=== PATIENT | female | born 1975 | race Caucasian/White ===

== ENCOUNTER → 2016-08-22 | Outpatient (CLI) | payer OTHER ==
--- NOTE | 2016-08-22 19:31 | DX ---
Bilateral Hands, 2 Views, at 11:28 a.m. Clinical History: 41-year-old female with joint pain. Rule out rheumatoid arthritis. ICD10 Diagnostic Code: M25.50. Comparison Study: None. Findings: Bone mineralization in each hand is normal, with no juxta-articular osteopenia, marginal er osion, soft tissue swelling or calcification, or joint subluxation. There is no fracture, dislocation , or periostitis. The radiocarpal and intercarpal alignments are maintained. Impression: Normal conventional radiographs.
== END ==
LOC: FIMAGING 11:19
PROVIDERS: ATTEND Internal Medicine Rheumatology
DX: M25.541 Pain in joints of right hand (principal); M25.542 Pain in joints of left hand

== ENCOUNTER → 2016-12-17 | Outpatient (CLI) | payer OTHER | LOC: FIMAGING 12:55 | DX: Z12.31 Encounter for screening mammogram for malignant neoplasm of breast (principal) | CPT/HCPCS: G0202 ==

== ENCOUNTER → 2017-07-15 | Outpatient (CLI) | payer OTHER | LOC: EDSTATUS 14:02 → FIMAGING 14:02 | PROVIDERS: ATTEND Neurological Surgery | DX: M54.16 Radiculopathy, lumbar region (principal); M43.17 Spondylolisthesis, lumbosacral region; M51.36 Other intervertebral disc degeneration, lumbar region; M51.37 Other intervertebral disc degeneration, lumbosacral region ==

== ENCOUNTER 2017-08-31 08:35 | Inpatient (IN) | payer OTHER ==
[2017-08-24 13:20] LABS: PLATELET COUNT 221 10^3/uL (150-400)
[2017-08-31] MEDS ORDERED: GABAPENTIN 300 MG CAP PO ONE ×2 (08:59→10:15)
[2017-08-31] MEDS ORDERED: ceFAZolin 2 GM/SWFI 2 GM/20 ML SYR IVP ONE (08:59)
[2017-08-31] MEDS ORDERED: ACETAMINOPHEN 500 MG TAB PO ONE (08:59)
[2017-08-31] MEDS ORDERED: BUPIVACAINE 0.25% 30 ML SDV ONE (09:03)
[2017-08-31] MEDS ORDERED: CHLORHEXIDINE GLUC HIBICLENS 118 ML BTL TP ONE (09:04)
[2017-08-31] MEDS ORDERED: THROMBIN (BOVINE) 20,000 UNIT VIAL TP ONE (09:04)
[2017-08-31] MEDS ORDERED: BACITRACIN 50,000 UNITS/10 ML SYR IRR ONE (09:04)
[2017-08-31] MEDS ORDERED: LR 1,000 ML IV ONE (09:09)
[2017-08-31] MEDS ORDERED: LIDOCAINE 1% 2 ML INJ ID PRN (09:09)
--- NOTE | 2017-08-31 10:04 | PDHPUP ---
History & Physical Update H&P update statement: This history and physical update is based on an assessment of the patient which was completed after admission or registration (within 24 hours), but prior to the surgery/procedure. H&P update: H&P reviewed & patient examined, no change in patient's condition since H&P completed
[2017-08-31] MEDS ORDERED: MIDAZOLAM 2 MG/2 ML VIAL ONE (10:23)
[2017-08-31] MEDS ORDERED: PROPOFOL/EMULSION 500 MG/50 ML BOTTLE IV ONE (10:23)
[2017-08-31] MEDS ORDERED: fentaNYL 100 MCG/2 ML INJ ONE ×3 (10:23→15:02)
--- NOTE | 2017-08-31 11:04 | PDANEPAE ---
ANE Past Medical History - Cardiovascular History Hx Hypertension: No Hx Arrhythmias: Yes Hx Chest Pain: No Hx Coronary Artery / Peripheral Vascular Disease: No Hx CHF / Valvular Disease: No Hx Palpitations: No Cardiovascular History Comment: ablation x2 - Pulmonary History Hx COPD: No Hx Asthma/Reactive Airway Disease: No Hx Recent Upper Respiratory Infection: No Hx Oxygen in Use at Home: No Hx Sleep Apnea: No Sleep Apnea Screening Result - Last Documented: Negative - Neurologic History Hx Cerebrovascular Accident: No Hx Seizures: No Hx Dementia: No - Endocrine History Hx Diabetes: No - Renal History Hx Renal Disorders: No - Liver History Hx Hepatic Disorders: Yes Hepatic History Comment: red blood cells lower R/T RA medication - Neurological & Psychiatric Hx Hx Neurological and Psychiatric Disorders: Yes Neurological / Psychiatric History Comment: raynards,ethromyalgia - Cancer History Hx Cancer: No - Congenital Disorder History Hx Congenital Disorders: Yes Congenital History Comment: RA - GI History Hx Gastrointestinal Disorders: Yes Gastrointestinal History Comment: gerd - Other Health History Other Health History: none - Chronic Pain History Chronic Pain: Yes (left shoulder and neck) - Surgical History Prior Surgeries: none ANE Review of Systems Review of Systems: - Exercise capacity METS (RN): 4 METS ANE Patient History - Allergies Allergies/Adverse Reactions: No Known Allergies Allergy (Verified 08/21/17 15:43) - Home Medications Home Medications: Cholecalciferol Vit D3 [Vitamin D3 2000 units tab (OTC)] 2,000 units PO DAILY [Last Taken 08/24/17] Fexofenadine HCl 180 mg PO DAILY 08/18/17 [Last Taken 08/29/17] Gabapentin [Neurontin 300 MG (*)] 300 mg PO BID 08/18/17 [Last Taken 08/31/17 0500] Ibuprofen [Motrin (*)] 400 mg PO BID 08/18/17 [Last Taken 08/24/17] Leflunomide [Arava 20 mg (*)] 10 mg PO Q2D 08/18/17 [Last Taken 08/29/17 19:00] traMADol [Ultram 50 mg (*)] 50 mg PO BID 08/18/17 [Last Taken 08/24/17 05:00] Acetaminophen [Tylenol 325mg (*)] 650 mg PO Q6 PRN 08/31/17 [Last Taken 08/30/17 ] Omeprazole Magnesium [Prilosec Otc] 20 mg PO Q3D 08/31/17 [Last Taken 08/31/17] Pseudoephedrine HCl [Sudafed 12 Hour 120mg (*)] 120 mg PO BID 08/31/17 [Last Taken 08/30/17] - NPO status NPO Since - Liquids (Date): 08/30/17 NPO Since - Liquids (Time): 21:00 NPO Since - Solids (Date): 08/30/17 NPO Since - Solids (Time): 21:00 - Smoking Hx Smoking Status: Former smoker - Family Anes Hx Family Hx Anesthesia Complications: none ANE Labs/Vital Signs - Labs Result Diagrams: 08/24/17 13:06 - Vital Signs Blood Pressure: 132/91 Heart Rate: 87 Respiratory Rate: 16 O2 Sat (%): 96 Height: 162.56 cm Weight: 49.895 kg ANE Physical Exam - Airway Neck exam: FROM Mallampati Score: Class 1 Mouth exam: normal dental/mouth exam - Pulmonary Pulmonary: no respiratory distress, no rales or rhonchi, clear to auscultation - Cardiovascular Cardiovascular: regular rate and rhythym, no murmur, rub, or gallop, pulses symmetric bilaterally - ASA Status ASA Status: III ANE Anesthesia Plan Anesthesia Plan: general endotracheal anesthesia Lines/Monitors: additional IV
[2017-08-31] MEDS ORDERED: LIDOCAINE 2% 5 ML SDV ONE ×2 (11:05→13:35)
[2017-08-31] MEDS ORDERED: ROCURONIUM 50 MG/5 ML VIAL ONE (11:05)
[2017-08-31] MEDS ORDERED: DEXAMETHASONE 4 MG/ML VIAL ONE (11:05)
[2017-08-31] MEDS ORDERED: RANITIDINE 50 MG/2 ML VIAL ONE (11:05)
[2017-08-31] MEDS ORDERED: ONDANSETRON 4 MG/2 ML VIAL ONE (11:05)
[2017-08-31] MEDS ORDERED: METOCLOPRAMIDE 10 MG/2 ML VIAL ONE (11:05)
[2017-08-31] MEDS ORDERED: SUGAMMADEX SODIUM 200 MG/2 ML VIAL IVP ONE (11:05)
[2017-08-31] MEDS ORDERED: diphenhydrAMINE 25 MG CAP PO PRN (11:12)
[2017-08-31] MEDS ORDERED: LACTULOSE 20 GM/30 ML UDCUP PO PRN (11:12)
[2017-08-31] MEDS ORDERED: POLYETHYLENE GLYCOL 3350 17 GM PKT PO PRN (11:12)
[2017-08-31] MEDS ORDERED: NALOXONE HCL 0.4 MG/ML INJ IVP PRN ×3 (11:12→15:27)
[2017-08-31] MEDS ORDERED: ACETAMINOPHEN 325 MG TAB PO PRN (11:12)
[2017-08-31] MEDS ORDERED: morphINE PCA 30 MG/30 ML PCA IV PRN (11:12)
[2017-08-31] MEDS ORDERED: MAGNESIUM HYDROXIDE 30 ML UDCUP PO PRN (11:12)
[2017-08-31] MEDS ORDERED: ONDANSETRON 4 MG/2 ML VIAL IVP PRN ×2 (11:12→14:14)
[2017-08-31] MEDS ORDERED: BISACODYL 10 MG SUPP PR PRN (11:12)
[2017-08-31] MEDS ORDERED: ALBUMIN 5% 250 ML BOTTLE IV ONE ×2 (11:44→13:24)
[2017-08-31] MEDS ORDERED: PHENYLEPHRINE HCL 100 MCG/ML SYR ONE (12:43)
[2017-08-31] MEDS ORDERED: PROPOFOL 200 MG/20 ML VIAL ONE (13:33)
[2017-08-31] MEDS ORDERED: ceFAZolin 2 GM/DEXTROSE 100 ML IV SCH (14:00)
[2017-08-31] MEDS ORDERED: METOCLOPRAMIDE 10 MG/2 ML VIAL IVP PRN (14:14)
[2017-08-31] MEDS ORDERED: PROMETHAZINE HCL 25 MG/ML INJ IVP PRN (14:14)
[2017-08-31] MEDS ORDERED: DEXAMETHASONE 4 MG/ML VIAL IVP PRN (14:14)
[2017-08-31] MEDS ORDERED: PHENYLEPHRINE HCL 100 MCG/ML SYR IVP PRN (14:14)
[2017-08-31] MEDS ORDERED: ALBUTEROL 3 ML DEYVIAL IH PRN (14:14)
[2017-08-31] MEDS ORDERED: MEPERIDINE 25 MG/ML SYR IVP PRN (14:14)
[2017-08-31] MEDS ORDERED: CALCIUM CHLORIDE 1 GM/10 ML INJ ONE (14:19)
--- NOTE | 2017-08-31 14:58 | POSTOPPROG ---
Post Op Note Date of Operation: 08/31/17 Surgeon: Wyatt Peterson Calibration Technician: Daiana Looney NP Anesthesia: GET(General Endotracheal) Pre-op Diagnosis: Spondylilothesis, lumbar stenosis Procedure: L5-S1 TLIF Inf/Abcess present in the surg proc area at time of surgery?: No Depth: Deep Incisional (Fascial) EBL: 100-500 Total fluids administered: see anesthesia Complications: none Drains: Luiz Vasquez Date of Surgery: 08/31/17 Post Op Day: 0 Assessment/Plan: 42 yr old s/p L5-S1 TLIF for back pain and right > left leg pain Plan: -Pain management, FACILITY MECHANIC ordered if needed -PT/OT eval and treat -Wear brace when out of bed, patient has been fitted for brace already -Post op xrays in am -Please call Neurosurgery with any questions/concerns Subjective: Patient waking up in PACU Objective: Waking up in PACU Following commands PERRLA 5/5 BUE, BLE Sensation intact to light touch BLE ANGELA patent Dressing CDI Appropriate Neuro Check Frequency Ordered: Yes
[2017-08-31] MEDS: fentaNYL 100 MCG/2 ML INJ IVP PRN ×2 (15:04→15:21)
--- NOTE | 2017-08-31 15:16 | POSTANESTH ---
Post Anesthetic Evaluation Cardiovascular Status: Normal, Stable, Similar to Pre-Op Cond Respiratory Status: Normal, Stable, Similar to Pre-op Cond. Level of Consciousness/Mental Status: Can Participate in Eval Pain Control: Adequate, Prn Tx Ordered Nausea/Vomiting Control: Adequate, Prn Tx Ordered Complications Possibly Related to Anesthesia: None Noted
[2017-08-31] MEDS: DIAZEPAM 10 MG/2 ML SYR IVP PRN ×2 (15:38→15:48)
[2017-08-31] MEDS: oxyCODONE IR 5 MG TAB PO PRN ×2 (17:19→20:58)
[2017-08-31] MEDS: METHOCARBAMOL 750 MG TAB PO PRN ×2 (17:19→22:35)
[2017-08-31] MEDS: ACETAMINOPHEN 500 MG TAB PO SCH ×2 (18:28→21:32)
[2017-08-31] MEDS: ceFAZolin 2 GM/SWFI 2 GM/20 ML SYR IVP SCH (19:02)
--- NOTE | 2017-08-31 20:44 | GOP ---
[f rep st] OPERATIVE REPORT DATE OF OPERATION: 08/31/2017 SURGEON: Malachi Peterson MD NEUROSURGEON: Malachi Peterson MD. PHYSICIAN PR[facility] MEDICINE: Daiana Looney, nurse practitioner. PREOPERATIVE DIAGNOSIS: Lumbar spondylolisthesis grade 2 L5-S1; bilateral pars defects L5; right lum bosacral radiculopathy. POSTOPERATIVE DIAGNOSIS: Lumbar spondylolisthesis grade 2 L5-S1; bilateral pars defects L5; right melania mbosacral radiculopathy. PROCEDURE PERFORMED: Posterolateral and intervertebral arthrodesis at L5-S1 with a bilateral Guzman de compression at L5-S1 (95687), posterior nonsegmental instrumentation across a single interspace L5-S1 (59021), placement of expandable biomechanical intervertebral device L5-S1 ([id number]), same-incision davian ne graft harvest, microscope, spinal stereotaxy. FINDINGS: ESTIMATED BLOOD LOSS: 200 cc. INDICATIONS: Patient is a 42-year-old who is very active and athletic, had a grade 2 spondylolisthes is with bilateral spondylolysis of L5 on S1 with a right L5 radiculopathy. This interfered with her activities of daily living and she failed conservative management. She wanted to have surgery. The risk of adjacent segment disease, as well as ongoing radicular pain and/or back pain was discussed. She knew surgery was not a guarantee, but it had a high probability of success. She knew there was r isk of nerve injury, spinal fluid leak, and possible need for future surgery. She did want to procee d. DESCRIPTION OF PROCEDURE: Patient was taken to the operating room, placed in supine position. Gener al anesthesia was begun. She was flipped prone onto the Luiz table. Care was taken to pad all po ints of contact. Her back was sterilely prepped and draped by the surgeon. A localizing x-ray was t aken. I made about a 5.5 cm incision above the L5-S1 interspace through subcutaneous tissue. It was dissected using Bovie cautery down through the fascia and a subperiosteal dissection was made down t he L5-S1 lamina and L4 lamina. Self-retaining retractor was placed. A localizing x-ray was taken. We denuded the bilateral hypertrophic facet joints at L5-S1. Despite the fact that she did indeed almonte ve a pars defect, the facet joints did appear enlarged. We decorticated the sacral ala and the trans verse process of L5 and we appreciated a cyst coming out of the right L5 pars defect as we are doing this. This was all completely removed. There were also some paraspinal cysts at the inferior L4-5 f acet joint, but I actually felt that these were likely related to the pars defect itself. We hydraulic press operator d the Stealth reference frame to the L4 spinous process, performed an O-arm spin, and using frameless Stealth stereotaxy we placed pedicle screws bilaterally at L5 and the sacrum. They were in excellen t position. An O-arm spin was made to confirm their location. None of them had to be moved. In fac t, it was interesting that she actually had a borderline grade 3 spondylolisthesis on the table. She was at grade 2-3 junction with about a 49% subluxation of L5 on S1. We put all the screws in. They stimulated at acceptable levels. We placed a 35 mm hawk down on the left and a 40 mm hawk on the righ t. We distracted between L5 and S1 and we reduced her to a grade 1 spondylolisthesis. So we reduced her a single grade and also got significant elevation of the disk space. She was [id number] prior to this, and after distracting we were able to get about 7-8 mm of spread between L5 and the sacrum. We final tightened the cap screws according to company specification and locked her in this positio n. We then carefully removed all the soft tissue of the bone from L5. We completely removed the dana ating lamina of L5 and used it for autologous grafting purposes. The dura was notably extremely thin at L5-S1 as is typical in these cases. We decompressed and removed the abnormal pars interarticular is bilaterally. This left the superior articular process of the sacrum. We also decorticated the is thmus coming off L5 on each side to allow posterolateral bone to form in this location. We began on the left and we performed an excellent decompression to the left L5 root. Then we went to the right and also decompressed the right L5 nerve root and indeed this one may have been somewhat tighter than what we saw on the left, although again there was nice distraction of the foramen. The nerve now wa s free and clear of compression. We then incised the L5-S1 disk from the right-hand side. We remove d the disk and the cartilaginous endplates. This was a relatively straightforward procedure. We alon lavell bone autograft and BMP into the disk space and chose a 7 mm expandable cage. It was inserted at L5-S1. We inserted the cage, expanded it under fluoroscopic guidance, and there was excellent positi oning of the cage and we were able to get some slight lordosis at the L5-S1 segment with this expansi on. We inspected the cage. It was firmly seated in the disk space itself without encroachment on ei ther the traversing S1 root or the exiting L5 root. It was in great position. We irrigated with ant ibiotic saline, decorticated all the remaining posterolateral bone at L5-S1, placed bone autograft an d BMP down posterolaterally bilaterally. We then placed a subfascial drain, and then closed the inci celeste in multiple layers using Vicryl sutures. Steri-Strips were applied to the skin. The patient wa s reversed from anesthesia, extubated, and transferred to recovery room in stable condition. There w ere no complications. COMPLICATIONS: None. /[id number]/MODL
[2017-08-31] MEDS: SENNOSIDES/DOCUSATE SODIUM TAB PO SCH (21:32)
[2017-08-31] MEDS: GABAPENTIN 300 MG CAP PO SCH (21:32)
[2017-08-31] MEDS: FAMOTIDINE 20 MG TAB PO SCH (21:32)
[2017-08-31] MEDS: DIAZEPAM 5 MG TAB PO PRN (22:35)
[2017-09-01] MEDS: oxyCODONE IR 5 MG TAB PO PRN ×8 (00:05→22:56)
[2017-09-01] MEDS: ceFAZolin 2 GM/SWFI 2 GM/20 ML SYR IVP SCH (03:20)
[2017-09-01 04:45] LABS: PLATELET COUNT 215 10^3/uL (150-400)
[2017-09-01] MEDS: ACETAMINOPHEN 500 MG TAB PO SCH ×3 (04:49→21:37)
[2017-09-01] MEDS: ONDANSETRON DISINTEGRATING 4 MG TAB PO PRN (04:50)
[2017-09-01] MEDS: METHOCARBAMOL 750 MG TAB PO PRN ×3 (06:46→18:56)
[2017-09-01] MEDS: SENNOSIDES/DOCUSATE SODIUM TAB PO SCH ×2 (07:45→21:37)
[2017-09-01] MEDS: DIAZEPAM 5 MG TAB PO PRN ×3 (07:45→21:37)
[2017-09-01] MEDS: GABAPENTIN 300 MG CAP PO SCH ×4 (07:46→21:37)
[2017-09-01] MEDS: FAMOTIDINE 20 MG TAB PO SCH ×2 (07:46→21:37)
--- NOTE | 2017-09-01 08:02 | NEUSURGPN ---
Date of Surgery: 08/31/17 Post Op Day: 1 Assessment/Plan: 42 yr old s/p L5-S1 TLIF for back pain and right > left leg pain POD#1 Plan: -Pain management, patient having bilateral posterior leg pain R>L and expected incisional pain, will increase Gabapentin to TID -PT/OT eval and treat -DC ANGELA -Wear brace when out of bed, patient has been fitted for brace already -Post op xrays today -Please call Neurosurgery with any questions/concerns Subjective: Patient having expected incisional pain and bilateral posterior leg pain Objective: AxO x3 5/5 BUE, BLE Sensation intact to light touch BLE Dressing CDI ANGELA present Neuro Check Frequency: per routine Urinary Catheter in Place: No - Physician Discussed Patient with .: Nicholas Patient Seen by : Nicholas Neurosurgery Physical Exam - Vitals, I&O, Labs I and O 08/31/17 09/01/17 09/02/17 05:59 05:59 05:59 Intake Total 2030 Output Total 1800 Balance 230 Weight 49.895 kg Intake: Oral (ml) 1030 IV Intake (ml) 1000 Output: Urine (ml) 1500 Bedside Commode 1500 Estimated Blood Loss (ml) 300 ANGELA Drain Output (ml) 0 Back 0 Other: Intake Quantity Yes Sufficient Number of Voids Bedside Commode 2 Vital Signs Temp Pulse Resp BP Pulse Ox 36.9 C 80 19 118/72 100 09/01/17 03:39 09/01/17 03:39 09/01/17 03:39 09/01/17 03:39 09/01/17 03:39 Laboratory Results 09/01/17 04:22 09/01/17 04:22 ICD10 Worksheet Patient Problems: Problems Problem Status Onset Lumbar stenosis Acute - ICD10 Problem Qualifiers (1) Lumbar stenosis
--- NOTE | 2017-09-01 16:50 | ASMTCMCOM ---
CM Note CM Note Notes: Pt is s/p L5-S1 TLIF, has brace. PT/OT have cleared. Anticipate d/c home with and no CM needs. Will continue to follow for any change in needs. Date Signed: 09/01/2017 04:50 PM Electronically Signed By:SHANEL Chaidez
[2017-09-02] MEDS: oxyCODONE IR 5 MG TAB PO PRN ×5 (04:16→20:30)
[2017-09-02] MEDS: METHOCARBAMOL 750 MG TAB PO PRN ×4 (04:16→20:30)
[2017-09-02] MEDS: ACETAMINOPHEN 500 MG TAB PO SCH ×3 (06:15→20:31)
[2017-09-02] MEDS: DIAZEPAM 5 MG TAB PO PRN ×3 (06:15→20:30)
--- NOTE | 2017-09-02 07:51 | NEUSURGPN ---
Date of Surgery: 08/31/17 Post Op Day: 2 Assessment/Plan: 42 yr old s/p L5-S1 TLIF for back pain and right > left leg pain POD#2 Plan: -Pain has improved with oral medications per patient, expected incisional pain -PT/OT -Wear brace when out of bed, patient has been fitted for brace already -Post op xrays show stable hardware placement -Patient will likely dc home later today pending pain control with therapy this am -Discussed patient with Dr Peterson and he will see her this am -Please call Neurosurgery with any questions/concerns Subjective: Pain has improved, got 5 hours of sleep last pm Objective: PERRLA EOMI 5/5 BLE Sensation intact to light touch BLE Dressing CDI Neuro Check Frequency: per routine Urinary Catheter in Place: No - Physician Discussed Patient with DrZay: Nicholas Patient Seen by : Nicholas Neurosurgery Physical Exam - Vitals, I&O, Labs I and O 09/01/17 09/02/17 09/03/17 05:59 05:59 05:59 Intake Total 2030 350 Output Total 1800 Balance 230 350 Weight 49.895 kg Intake: Oral (ml) 1030 350 IV Intake (ml) 1000 Output: Urine (ml) 1500 Bedside Commode 1500 Estimated Blood Loss (ml) 300 ANGELA Drain Output (ml) 0 Back 0 Other: Intake Quantity Yes Yes Sufficient Number of Voids Bedside Commode 2 Toilet 1 Number of Stools Toilet 1 Vital Signs Temp Pulse Resp BP Pulse Ox 36.9 C 106 H 16 116/66 97 09/02/17 04:00 09/02/17 04:00 09/02/17 04:00 09/02/17 04:00 09/02/17 04:00 Laboratory Results 09/01/17 04:22 09/01/17 04:22 ICD10 Worksheet Patient Problems: Problems Problem Status Onset Lumbar stenosis Acute - ICD10 Problem Qualifiers (1) Lumbar stenosis
[2017-09-02] MEDS: ONDANSETRON DISINTEGRATING 4 MG TAB PO PRN (09:00)
[2017-09-02] MEDS: FAMOTIDINE 20 MG TAB PO SCH ×2 (09:03→20:31)
[2017-09-02] MEDS: GABAPENTIN 300 MG CAP PO SCH ×3 (09:04→20:31)
[2017-09-02] MEDS: SENNOSIDES/DOCUSATE SODIUM TAB PO SCH ×2 (09:18→22:38)
--- NOTE | 2017-09-02 16:30 | CPEKG ---
Heart Rate: 129 RR Interval: 465 P-R Interval: 132 QRSD Interval: 72 QT Interval: 276 QTC Interval: 405 P [place]: 58 QRS [place]: 70 T Wave [place]: 23 EKG Severity - OTHERWISE NORMAL ECG - EKG Impression: SINUS TACHYCARDIA EKG Impression: COMPARED WITH 07/29/2011 AT 7:24 A.M., HEART RATE IS NOW FASTER Electronically Signed By: Haleigh Sorto 03-Sep-2017 13:32:46
--- NOTE | 2017-09-02 17:19 | GCON ---
[f rep st] CONSULTATION CARDIOLOGY CONSULTATION DATE OF CONSULTATION: 09/02/2017 REFERRING PHYSICIAN: Malachi Peterson MD REASON FOR CONSULTATION: Tachycardia. HISTORY OF PRESENT ILLNESS: The patient is a 42-year-old woman who underwent lumbar spine surgery 2 days ago. Since her surgery, she has had moderately increased heart rates with heart rates typically 100-115 beats per minute. However, today her heart rate has been higher. At times, it has been up to 140 beats per minute. The patient was not on telemetry. Shortly before my arrival, she was conne cted to telemetry and also had a 12-lead ECG demonstrating sinus tachycardia at approximately 130 cesar ts per minute. During my conversation with her, I saw heart rates as high as 144 beats per minute. She does sense that her heart is going fast. However, she denies any chest discomfort, lightheadedne ss, or dyspnea. PAST CARDIAC HISTORY AND TESTING: She has a prior history of frequent PVCs, reportedly over 10,000 p er day. Late in 2010, she underwent 2 separate PVC ablation procedures by Dr. Kearney. These took place in May and July of that year. She was seen for followup by Dr. Kearney in August of 2011 but h as not been seen in our office since then. PAST MEDICAL HISTORY: Her past medical history includes rheumatoid arthritis and sinusitis. She has a history of prior sinus surgery. FAMILY HISTORY: Noncontributory. MEDICATIONS: Home medicines include omeprazole, Tylenol, gabapentin, fexofenadine, vitamin D, leflun omide, oxycodone, Robaxin, and diazepam. Because of sinus headache, she had been taking Advil. She was advised to discontinue this. She replaced it with 12-hour Sudafed at 120 mg twice daily, but she stopped this as directed several days before her surgery. ALLERGIES: No known drug allergies. SOCIAL HISTORY: She is . She has a 12-year-old daughter. She smoked in the remote past. Al cohol consumption is minimal. She manages a local dental office. Her back problems have kept her fr om being vigorously active, but she tries to walk on her treadmill regularly. REVIEW OF SYSTEMS: Apart from her back pain issues and sensation of tachycardia, a 10-point review w as negative. PHYSICAL EXAMINATION: VITAL SIGNS: Heart rate 130-140 beats per minute. Blood pressure 127/80, chetna m air O2 saturation 98%. GENERAL: This is a petite 42-year-old woman who appears somewhat anxious. She is alert and oriented x3. HEAD AND NECK: No scleral icterus. Mucous membranes moist. Carotid pulses 2+, without bruits. There is no JVD. CHEST: Lung bryan clear to auscultation bilaterally. CARDIAC: Tachycardic, regular rate. No murmur or gallop. ABDOMEN: Soft, nontender, nondistended , with normal bowel sounds. EXTREMITIES: 2+ pulses and no peripheral edema. LABORATORY STUDIES: Laboratory testing performed yesterday included a CBC with a white blood cell co unt of 10.39 and hemoglobin and hematocrit of 10.6 and 30.7. Platelet count was 215,000. Her metabo lic panel from yesterday demonstrated a sodium of 142, with potassium 4.4, BUN 9, and creatinine 0.6. ECG: Her 12-lead ECG from this afternoon demonstrates sinus tachycardia at 129 beats per minute. Th ere are no Q-waves or conduction system disturbances. There are no ischemic changes. IMPRESSION: This is a 42-year-old woman with a history of premature ventricular contractions and gypsy or ablation for said premature ventricular contractions. She is 2 days status post lumbar spine surg amanda. She now demonstrates sinus tachycardia with significantly elevated heart rate. She is not hypo tensive. She is not running a fever. There have been no bleeding issues or signs of infection. She has been on DVT prophylaxis with both compression stockings and subcutaneous low molecular weight he mateus. Still, pulmonary embolism could remain in the differential diagnosis. PLAN: The patient will be transferred to PCU. We will check a lower extremity Doppler to rule out D VT. She will have a TSH, hemoglobin/hematocrit drawn. We will start her on low-dose metoprolol. /[id number]/MODL
[2017-09-02] MEDS: METOPROLOL TARTRATE 25 MG TAB PO SCH (17:50)
[2017-09-03] MEDS: DIAZEPAM 5 MG TAB PO PRN (03:36)
[2017-09-03] MEDS: oxyCODONE IR 5 MG TAB PO PRN ×3 (03:36→12:40)
[2017-09-03] MEDS: ACETAMINOPHEN 500 MG TAB PO SCH ×2 (07:06→15:53)
[2017-09-03] MEDS ORDERED: NON-FORMULARY NEW DRUG (Omeprazole Magnesium [Prilosec Otc] 20 MG) PO SCH (08:00)
[2017-09-03] MEDS ORDERED: PANTOPRAZOLE SODIUM 40 MG TAB PO SCH (08:00)
--- NOTE | 2017-09-03 08:26 | NEUSURGPN ---
Date of Surgery: 08/31/17 Post Op Day: 3 Assessment/Plan: 42 yr old s/p L5-S1 TLIF for back pain and right > left leg pain POD#3 Plan: -Pain has improved with oral medications per patient, expected incisional pain -PT/OT -Wear brace when out of bed, patient has been fitted for brace already -Post op xrays show stable hardware placement -Patient with tachycardia/PVC's yesterday afternoon, cardiology was consulted. Patient has history of cardiac ablation for tachycardia -Patient may dc home from a neurosurgery standpoint. Will await cardiology recommendations for tachycardia -BLE doppler pending to rule out DVT -May removed dressing, leave steri strips in place. Ok to shower today -Start Lovenox for DVT prophylaxis today -Discussed patient with Dr Peterson and he will see her this am -Please call Neurosurgery with any questions/concerns Subjective: Patient feeling good, better today. Denies chest pain or shortness of breath Objective: AxO x3 PERRLA EOMI 5/5 BLE Sensation intact to light touch BLE Dressing CDI Neuro Check Frequency: per routine Urinary Catheter in Place: No - Physician Discussed Patient with : Nicholas Patient Seen by : Nicholas Neurosurgery Physical Exam - Vitals, I&O, Labs I and O 09/02/17 09/03/17 09/04/17 05:59 05:59 05:59 Intake Total 350 500 Output Total 125 Balance 350 375 Intake: Oral (ml) 350 500 Output: Urine (ml) 125 Toilet 125 Other: Intake Quantity Yes Sufficient Number of Voids Toilet 1 1 Number of Stools Toilet 1 Vital Signs Temp Pulse Resp BP Pulse Ox 36.8 C 102 H 20 100/69 93 09/03/17 03:22 09/03/17 03:22 09/03/17 03:22 09/03/17 03:22 09/03/17 03:22 Laboratory Results 09/02/17 18:00 09/01/17 04:22 ICD10 Worksheet Patient Problems: Problems Problem Status Onset Lumbar stenosis Acute - ICD10 Problem Qualifiers (1) Lumbar stenosis
[2017-09-03] MEDS: GABAPENTIN 300 MG CAP PO SCH ×2 (08:28→15:53)
[2017-09-03] MEDS: METOPROLOL TARTRATE 25 MG TAB PO SCH (08:28)
[2017-09-03] MEDS: FAMOTIDINE 20 MG TAB PO SCH (08:28)
[2017-09-03 08:39] VITALS: RESP 18
[2017-09-03] MEDS: METHOCARBAMOL 750 MG TAB PO PRN (08:39)
[2017-09-03] MEDS ORDERED: ENOXAPARIN 40 MG/0.4 ML SYR SC SCH (09:00)
[2017-09-03] MEDS: SENNOSIDES/DOCUSATE SODIUM TAB PO SCH (09:59)
--- NOTE | 2017-09-03 10:54 | ECHO ---
[email or web address] [address] Main: [phone] Fax: [email or web address] Echocardiogram Name: AVEL BAIRES MR#: [id number] Study Date: 09/03/2017 Study Time: 09:02 AM Date of : 1975 Age: 42 year(s) Height: 162.6 cm (64 in.) Weight: 49.9 kg (110 lb.) BSA: 1.52 m2 Gender: Female Examination: Echo Indication: Tachycardia, hx of 2 ablations Image Quality: Contrast: Requested by: Ryley Trinidad BP: 122 mmHg/87 mmHg Heart Rate: Rhythm: Indication: Tachycardia, hx of 2 ablations Procedure Staff Director Financial Planning: Meme Penny Reading Physician: Ryley Trinidad Requesting Provider: Ryley Trinidad Conclusions: Normal size left ventricle. The ejection fraction is estimated to be 60-65 %. No regional wall motion abnormality. Normal diastolic LV function. Trivial mitral valve regurgitation. Mild aortic valve regurgitation is present. Mild tricuspid regurgitation is present. No pericardial effusion. Measurements: Chambers Valvular Assessment AV/MV Valvular Assessment TV/PV Normal Normal Normal Name Value Range Name Value Range Name Value Range Ao Rimma (MM): 2.8 cm (2.2 cm-3.7 AV Vmax: 1.09 m/s (1 m/s-1.7 cm) m/s) IVSd (2D): 0.4 cm (0.6 cm-1.1 AV maxP mmHg ( - ) cm) AR (PHT): 403 ms ( - ) LVDd (2D): 4.1 cm (3.9 cm-5.3 MV E Vmax: 0.49 m/s ( - ) cm) MV A Vmax: 0.51 m/s ( - ) LVDs (2D): 2.6 cm (2.1 cm-4 MV E/A: 0.96 ( - ) cm) LVPWd (2D): 0.5 cm ( - ) LVEF (MOD4): 62 % (>=55 %) EF Range: 60-65 % Continued Measurements: Chambers Valvular Assessment AV/MV Name Value Name Value Patient: AVEL BAIRES Study Date: 09/03/2017 Page 1 of 2 09:02 AM LADs: 2.3 cm MV E' Septal: 0.09 m/s LADs Lon.4 cm MV E/E' Septal: 5.40 LA Area: 8.4 cm2 MV E/E' Lateral: 3.40 LA Volume: 17 ml AR Vmax: 4.86 cm/s LA Volume Index: 11.2 ml/m2 Findings: Left Ventricle: Normal size left ventricle. No LV hypertrophy. Normal global systolic LV function. The ejection fraction is estimated to be 60-65 %. No regional wall motion abnormality. Normal diastolic LV function. Right Ventricle: Normal size right ventricle. Left Atrium: The left atrium is normal in size. Right Atrium: The right atrium is normal in size. Mitral Valve: The mitral valve is normal in appearance and function. Trivial mitral valve regurgitation. Aortic Valve: The aortic valve is normal in appearance and function. Mild aortic valve regurgitation is present. Tricuspid Valve: The tricuspid valve is normal in appearance and function. Mild tricuspid regurgitation is present. Pulmonic Valve: The pulmonic valve is normal in appearance and function. Aorta: The aorta is normal. Pericardium: No pericardial effusion. (No Signature Object) Patient: AVEL BAIRES Study Date: 09/03/2017 Page 2 of 2 09:02 AM [id number]
[2017-09-03] MEDS: ONDANSETRON DISINTEGRATING 4 MG TAB PO PRN (12:40)
[2017-09-03 13:14] VITALS: BP 112/83; PULSE 106; TEMP 98.1; O2SAT 95
--- NOTE | 2017-09-03 19:27 | PDCARPN ---
Cardiology Progress Note Assessment/Plan: Inappropriate Sinus Tachycardia: Patient's heart rate has improved to a low dose beta adithya therapy. H&H, TSH, and temperatures do not reveal a reason for her tachycardia. Pain and anxiety may be contributing somewhat. Her echocardiogram demonstrates normal left ventricular function. She has mild aortic regurgitation which will need to be followed longitudinally. She appears to be stable for discharge. She will continue low-dose beta adithya. I will have the office staff of [facility] contact her to arrange for a followup appointment in the next 3-4 weeks. At that time we will consider discontinuing her metoprolol and perform an outpatient 24-hour Holter monitor. 09/03/17 19:23 Subjective: No complaints. Reviewed/Discussed With: family Objective: Vital Signs (8 Hrs) Temp Pulse Resp BP Pulse Ox 09/03/17 12:00 36.7 C 106 H 18 112/83 H 95 09/03/17 11:30 113 H 88 L Intake/Output (24 Hrs) 09/02/17 09/03/17 09/04/17 05:59 05:59 05:59 Intake Total 350 500 Output Total 125 Balance 350 375 Intake: Oral (ml) 350 500 Output: Urine (ml) 125 Toilet 125 Other: Intake Quantity Yes Sufficient Number of Voids Toilet 1 1 Number of Stools Toilet 1 Result Diagrams: 09/02/17 18:00 09/01/17 04:22 - Physical Exam Constitutional: WDWN, healthy appearing, no apparent distress Eyes: anicteric sclera Ears, Nose, Mouth, Throat: moist mucous membranes Cardiovascular: regular rate and rhythm Respiratory: clear to auscultate bilat Gastrointestinal: normoactive bowel sounds, no tenderness, no masses Skin: no edema Neurologic: AAOx3 Psychiatric: anxious ICD10 Worksheet Patient Problems: Problems Problem Status Onset Lumbar stenosis Acute
--- NOTE | 2017-09-04 10:31 | ASDISCHSUM ---
Discharge Information Plan Status:Home with No Needs Medically Cleared to Leave:09/02/2017 Discharge Date:09/03/2017 05:12 PM CM D/C Disposition: ADT D/C Disposition:Home, Routine, Self-Care Projected Discharge Date:09/03/2017 12:00 AM Transportation at D/C: Discharge Delay Reason: Follow-Up Date:09/03/2017 12:00 AM Discharge Slot: Final Diagnosis: Placement Information Patient Contact Information Contact Name:ARLINE Relationship: Address:[address] City:[place] Alternate Phone: [facility]/Zip Code:[place] [address] Email: Financial Information Financial Class:HMO and PPO Plans Primary Plan Desc:HMO [employer] Primary Plan Number:[id number] Secondary Plan Desc: Secondary Plan Number: Assessment Information [facility] CM Progress Note CM Note CM Note Notes: Pt is s/p L5-S1 TLIF, has brace. PT/OT have cleared. Anticipate d/c home with and no CM needs. Will continue to follow for any change in needs. Date Signed: 09/01/2017 04:50 PM Electronically Signed By:SHANEL Chaidez Intervention Information
== END 2017-09-03 17:12 | disposition home or self-care (01) | DRG 460 ==
LOC: F3N 08:35 → F2W 09-02 17:20
PROVIDERS: ADMIT Neurological Surgery; ATTEND Neurological Surgery
PROC: 01NB0ZZ Release Lumbar Nerve, Open Approach (ICD-10-PCS; principal; 2017-08-31 10:45)
PROC: 3E0U0GB Introduction of Recombinant Bone Morphogenetic Protein into Joints, Open Approach (ICD-10-PCS; principal; 2017-08-31 10:45)
PROC: 0SG30AJ Fusion of Lumbosacral Joint with Interbody Fusion Device, Posterior Approach, Anterior Column, Open Approach (ICD-10-PCS; principal; 2017-08-31 10:45)
DX: M43.17 Spondylolisthesis, lumbosacral region (principal); M54.16 Radiculopathy, lumbar region; R00.0 Tachycardia, unspecified; Z87.891 Personal history of nicotine dependence; I35.1 Nonrheumatic aortic (valve) insufficiency
CPT/HCPCS: 97116-GP; 97161-GP; 97165-GO; 97535-GO; C1713; J0171; J0690; J1100; J1650; J2250; J2370; J2405; J2704; J2765; J2780; J3010; P9041

== ENCOUNTER → 2017-10-21 | Outpatient (CLI) | payer OTHER | LOC: FIMAGING 15:11 | PROVIDERS: ATTEND Physician Assistant | DX: Z09 Encounter for follow-up examination after completed treatment for conditions other than malignant neoplasm (principal); Z98.1 Arthrodesis status ==

== ENCOUNTER → 2017-12-23 | Outpatient (CLI) | payer OTHER | LOC: FIMAGING 14:26 | PROVIDERS: ATTEND Internal Medicine | DX: Z12.31 Encounter for screening mammogram for malignant neoplasm of breast (principal) ==

== ENCOUNTER → 2018-01-25 | Outpatient (CLI) | payer OTHER | LOC: FIMAGING 12:48 | PROVIDERS: ATTEND Nurse Practitioner | DX: M54.5 Low back pain (principal); Z98.1 Arthrodesis status ==

== ENCOUNTER 2018-04-15 17:30 | Emergency (ER) | payer OTHER ==
--- NOTE | 2018-04-15 18:08 | EDPHY ---
H & P Stated Complaint: Chest tightness Time Seen by Provider: 04/15/18 18:07 - Personal History LMP (Females 10-55): 15-21 Days Ago Current Tetanus/Diphtheria Vaccine: Unsure Tetanus Vaccine Date: 03/20 - Medical/Surgical History Hx Asthma: No Hx Chronic Respiratory Disease: No Hx Diabetes: No Hx Cardiac Disease: Yes Hx Renal Disease: No Hx Cirrhosis: No Hx Alcoholism: No Hx HIV/AIDS: No Hx Splenectomy or Spleen Trauma: No Other PMH: heart arythmia, heart ablasion (2010),m RA, GERD - Social History Smoking Status: Former smoker Constitutional: Initial Vital Signs Temperature (C) 36.7 C 04/15/18 17:35 Heart Rate 96 04/15/18 17:35 Respiratory Rate 16 04/15/18 17:35 Blood Pressure 127/91 H 04/15/18 17:35 O2 Sat (%) 99 04/15/18 17:35 O2 Delivery Mode Room Air Allergies/Adverse Reactions: No Known Allergies Allergy (Verified 04/15/18 17:39) Home Medications: Medication Instructions Recorded Cholecalciferol Vit D3 [Vitamin D3 2,000 units PO DAILY 08/18/17 2000 units tab (OTC)] Fexofenadine HCl 180 mg PO DAILY 08/18/17 Gabapentin [Neurontin 300 MG (*)] 300 mg PO BID 08/18/17 Leflunomide [Arava 20 mg (*)] 10 mg PO Q2D 08/18/17 Acetaminophen [Tylenol 325mg (*)] 650 mg PO Q6 PRN 08/31/17 Omeprazole Magnesium [Prilosec Otc] 20 mg PO Q3D 08/31/17 Pseudoephedrine HCl [Sudafed 12 120 mg PO BID 08/31/17 Hour 120mg (*)] Diazepam [Valium 5 MG (*)] 2.5 - 5 mg PO Q6H PRN #30 tab 09/02/17 Methocarbamol [Robaxin 750 mg (*)] 750 mg PO QID PRN #60 tab 09/02/17 Sennosides/Docusate Sodium 1 - 2 tab PO BID tab 09/02/17 [Senokot-S] oxyCODONE IR [Oxycodone Ir (*)] 5 - 10 mg PO Q3H PRN #60 tab 09/02/17 Metoprolol Tartrate [Lopressor 25 25 mg PO BID #0 tab 09/03/17 mg (*)] Medical Decision Making - Diagnostics Imaging Results: Imaging Impressions Chest X-Ray 04/15/18 18:23 Impression: No acute findings in the chest. Imaging: I viewed and interpreted images myself ED Course/Re-evaluation: CHIEF COMPLAINT: Chest pain HISTORY OF PRESENT ILLNESS: This patient is a 43 year old female who presents following an episode of chest pain. This morning, she was conducting her normal activities and had a severe squeezing discomfort in her chest while leaning over a couch. This lasted about 15 seconds. She felt as if her chest was being pulled in to itself. Her discomfort was associated with pain in both arms radiating from her shoulders to her elbows as well as jaw pain and lightheadedness. She has had acid reflux in the past, but symptoms are different from this. She endorses history of "heart problems" in the past including ablations for PVCs. She went to work today despite her symptoms this morning and they did not recur. She has not had any symptoms with exertion over the past few days or weeks. She denies pain or swelling in her calves. Family history is significant for a father who had AK and subsequent CHF at 45 and at age 60 of CAD, history of CVA in her mother. Patient denies personal history of hypertension, hyperlipidemia, diabetes mellitus. No fever, shortness of breath, nausea, vomiting, urinary complaints, or other associated symptoms. No recent trauma. REVIEW OF SYSTEMS: A comprehensive 10 system review of systems is otherwise negative aside from elements mentioned in the history of present illness and medical decision making. PHYSICAL EXAM: HR, BP, O2 Sat, RR. Temp noted General Appearance: Alert, well hydrated, appropriate, and non-toxic appearing. Head: Atraumatic without scalp tenderness or obvious injury Eyes: Pupils equal, round, reactive to light and accommodation, EOMI, no trauma , no injection. Ears: Clear bilaterally, no perforation, normal landmarks Nose: Atraumatic, no rhinorrhea, clear. Throat: There is no erythema or exudates, no lesions, normal tonsils, mucus membranes moist. Neck: Supple, 2+ carotid upstroke, nontender, no lymphadenopathy. Respiratory: No retractions, no distress, no wheezes, and no accessory muscle use. Lungs are clear to auscultation bilaterally. Cardiovascular: Regular rate and rhythm, no murmurs, rubs, or gallops. Bilateral carotid, radial, dorsalis pedis, and posterior tibial pulses intact. Good capillary refill all extremities. Gastrointestinal: Abdomen is soft, nontender, non-distended, no masses, no rebound, no guarding, no peritoneal signs. Musculoskeletal: Normal active ROM of all extremities, atraumatic. Neurological: Alert, appropriate, and interactive. The patient has normal DTRs and non-focal cranial nerves, motor, sensory, and cerebellar exam. Skin: No rashes, good turgor, no nodules on palpation. Past medical history: Sinus node problem. Past surgical history: Two prior ablations for PVCs. Spinal fusion. Family history: Father with 1st AK in early age and developed congestive heart failure, mother with stroke later age Social history: Nonsmoker. . DIAGNOSTICS/PROCEDURES/CRITICAL CARE TIME: The 12 lead EKG was interpreted by myself. See hard copy and/or "tracemaster" electronic copy for interpretation. No ischemia normal intervals DIFFERENTIAL DIAGNOSIS: The differential diagnosis for the patient's chest pain included but was not limited to myocardial ischemia, pulmonary embolus, chest wall pain, pleural inflammation, and pulmonary infectious causes. MEDICAL DECISION MAKING: This patient is a 43 y/o female. EKG shows sinus rhythm. Plan for POC troponin and chemistries. All labs are unremarkable. Chest x-ray is unremarkable. EKG is unremarkable. Patient has a very brief 15 sec history of chest symptoms while leaning over a couch. She exercises daily and has not had any symptoms whatsoever. This is a very atypical presentation for any significant cardiovascular problem. She has no history consistent with pulmonary embolus and has a negative PERC score. I will discharge this patient with brief chest wall pain which happened early this morning. She has had no symptoms for the last 8-9 hours. She is comfortable with this plan. - Data Points Laboratory Results: 04/15/18 04/15/18 18:31 18:24 POC Hgb 13.6 gm/dL gm/dL (12.6-16.3) POC Hct 40 % % (38-47) POC Sodium 140 mEq/L mEq/L (135-145) POC Potassium 3.1 mEq/L L mEq/L (3.3-5.0) POC Chloride 106 mEq/L mEq/L (97-110) POC BUN 11 mg/dL mg/dL (7-23) POC Creatinine 0.6 mg/dL mg/dL (0.6-1.0) POC Glucose 92 mg/dL mg/dL (70-100) POC Troponin I 0.01 ng/mL ng/mL (0.00-0.08) Point of Care Test Results: Chemistry 04/15/18 04/15/18 18:31 18:24 POC Sodium 140 mEq/L mEq/L (135-145) POC Potassium 3.1 mEq/L L mEq/L (3.3-5.0) POC Chloride 106 mEq/L mEq/L (97-110) POC BUN 11 mg/dL mg/dL (7-23) POC Creatinine 0.6 mg/dL mg/dL (0.6-1.0) POC Glucose 92 mg/dL mg/dL (70-100) POC Troponin I 0.01 ng/mL ng/mL (0.00-0.08) ISTAT H&H 04/15/18 18:31 POC Hgb 13.6 gm/dL gm/dL (12.6-16.3) POC Hct 40 % % (38-47) Departure - Departure Disposition: Home, Routine, Self-Care Clinical Impression: Chest pain Qualifiers: Chest pain type: other chest pain Qualified Code(s): R07.89 - Other chest pain Condition: Good Instructions: Chest Pain (ED), Thoracic Pain (ED) Additional Instructions: Follow-up with your primary doctor in 2-3 days. Return to the Emergency Department for fever, chest pain, shortness of breath, increasing pain or other worsening of condition. Referrals: Alicia Malcolm MD [Primary Care Provider] - As per Instructions Report Scribed for: Oniel Rodrigues Report Scribed by: Radha Busby Date of Report: 04/15/18 Time of Report: 21:13
[2018-04-15 19:15] VITALS: BP 118/76
[2018-04-16] MEDS ORDERED: MIDAZOLAM 2 MG/2 ML VIAL ONE (13:29)
--- NOTE | 2018-04-24 15:00 | CPEKG ---
Test Reason : OPEN Blood Pressure : / mmHG Vent. Rate : 079 BPM Atrial Rate : 079 BPM P-R Int : 118 ms QRS Dur : 077 ms QT Int : 355 ms P-R-T Axes : -21 067 057 degrees QTc Int : 407 ms Sinus rhythm Confirmed by Oniel Rodrigues ([id number]) on 04/24/2018 2:59:29 PM Referred By: Confirmed By:Oniel Rodrigues
== END 2018-04-15 19:26 | disposition home or self-care (01) ==
DX: R07.89 Other chest pain (principal); Z87.891 Personal history of nicotine dependence; Z82.49 Family history of ischemic heart disease and other diseases of the circulatory system
CPT/HCPCS: 82435-PO; 82565-PO; 82947-PO; 84132-PO; 84295-PO; 84484-PO; 84520-PO; 85014-PO; J2250

== ENCOUNTER → 2018-04-16 | Day surgery (SDC) | payer OTHER ==
[~2018-04-16] MED LIST: ACETAMINOPHEN 325 MG TAB PO PRN; ASPIRIN EC 325 MG TAB PO ONE; ATROPINE SULFATE 1 MG/10 ML SYR IVP PRN; DIAZEPAM 5 MG TAB PO ONE; FAMOTIDINE 20 MG TAB PO ONE; IOPAMIDOL (ISOVUE 370) 100 ML BTL IV ONE; IOPAMIDOL (ISOVUE-370) 150 ML BTL IV ONE; LIDOCAINE 1% 300 MG/30 ML SDV ONE; MIDAZOLAM 2 MG/2 ML VIAL ONE; NITROGLYCERIN 0.4 MG BTL SL PRN; ONDANSETRON 4 MG/2 ML VIAL IVP PRN; TEMAZEPAM 15 MG CAP PO PRN; diphenhydrAMINE 25 MG CAP PO ONE; fentaNYL 100 MCG/2 ML INJ ONE
--- NOTE | 2018-04-16 09:03 | EDPHY ---
H & P Stated Complaint: CP, SOB Time Seen by Provider: 04/16/18 08:48 HPI/ROS: CHIEF COMPLAINT: Recurrent chest pain and dyspnea HISTORY OF PRESENT ILLNESS: The patient presents to the ED after she developed an episode of recurrent chest pain and dyspnea at 530 this morning. The patient reports her symptoms lasted for approximately 15 min. She described a squeezing bandlike pain across her chest with radiation to both of her arms and back. She had profound dyspnea with this. The symptoms resolved and she has been asymptomatic since that time. She was seen in the emergency department yesterday for a 15 sec episode of this type of pain. Her workup yesterday demonstrated a nonischemic EKG, negative troponin and unremarkable chest x-ray. The patient does have a history of rheumatoid arthritis. She reports that this is typically well manage. The patient reports she does exercise every morning without symptoms of chest pain or shortness of breath. The patient's father did have a myocardial infarction at age 45. The patient denies any numbness weakness or acute neurologic symptoms in any of her extremities currently. The patient does have a history of an arrhythmia which required ablation. She reports that she did have a stress test performed within the past year which demonstrated no evidence of an acute abnormality. She is typically followed at [facility] for her cardiac condition. REVIEW OF SYSTEMS: A comprehensive 10 point review of systems is otherwise negative aside from elements mentioned in the history of present illness. Source: Patient Exam Limitations: No limitations - Personal History LMP (Females 10-55): 22-28 Days Ago Current Tetanus/Diphtheria Vaccine: Yes Current Tetanus Diphtheria and Acellular Pertussis (TDAP): Yes Tetanus Vaccine Date: 03/20 - Medical/Surgical History Hx Asthma: No Hx Chronic Respiratory Disease: No Hx Diabetes: No Hx Cardiac Disease: Yes Hx Renal Disease: No Hx Cirrhosis: No Hx Alcoholism: No Hx HIV/AIDS: No Hx Splenectomy or Spleen Trauma: No Other PMH: heart arythmia, heart ablasion (2010),m RA, GERD - Social History Smoking Status: Former smoker - Physical Exam Exam: General Appearance: Alert, no distress Eyes: Pupils equal and round no pallor or injection ENT, Mouth: Mucous membranes moist Respiratory: There are no retractions, lungs are clear to auscultation Cardiovascular: Regular rate and rhythm Gastrointestinal: Abdomen is soft and nontender, no masses, bowel sounds normal Neurological: A&O, normal motor function, normal sensory exam, normal cranial nerves Skin: Warm and dry, no rashes Musculoskeletal: Neck is supple nontender Extremities: symmetrical, full range of motion 2+ pulses noted in all 4 extremities Psychiatric: Patient is oriented X 3, there is no agitation Constitutional: Initial Vital Signs Temperature (C) 36.7 C 04/16/18 08:41 Heart Rate 110 H 04/16/18 08:41 Respiratory Rate 16 04/16/18 08:41 Blood Pressure 134/99 H 04/16/18 08:41 O2 Sat (%) 99 04/16/18 08:41 O2 Delivery Mode Room Air Allergies/Adverse Reactions: No Known Allergies Allergy (Verified 04/16/18 08:40) Home Medications: Medication Instructions Recorded Cholecalciferol Vit D3 [Vitamin D3 6,000 units PO DAILY 08/18/17 2000 units tab (OTC)] Fexofenadine HCl 180 mg PO DAILY 08/18/17 Gabapentin [Neurontin 300 MG (*)] 300 mg PO BID 08/18/17 Leflunomide [Arava 20 mg (*)] 10 mg PO DAILY 08/18/17 Acetaminophen [Tylenol 325mg (*)] 650 mg PO Q6 PRN 08/31/17 Pseudoephedrine HCl [Sudafed 12 120 mg PO BID 08/31/17 Hour 120mg (*)] Medical Decision Making - Diagnostics EKG Interpretation: EKG: Complete interpretation has been separately recorded in the [facility] archive. Summary impression: Sinus rate, 99, nonspecific ST segment changes are noted. Imaging Results: Imaging Impressions Chest/Thorax CTA 04/16/18 08:54 Impression: 1. No definite pulmonary thromboemboli. 2. No aortic aneurysm or dissection. 3. Coronary atherosclerosis. 4. No acute pulmonary disease. 5. Calcified granulomata without suspicious pulmonary nodules or acute pneumonia. Findings and recommendations discussed with Emergency Department physician, Nathaniel Mann,at 0948 hours, 04/16/2018. Final report concurs with initial preliminary interpretation. A test result has been communicated to a licensed care provider and documented in the [facility] Result system on 04/16/2018 9:48, Message ID [id number]. ED Course/Re-evaluation: The patient presents to the ED after 2 episodes of severe chest pain the past 2 mornings. She described a sharp bandlike pressure across her chest with radiation to the arms and back. Today her symptoms lasted approximately 15 min. The patient's past medical history is significant for myocardial infarction in her father at the age of 45. The patient arrived to the emergency department was noted to be hemodynamically stable. Patient's EKG demonstrates no evidence of acute ischemia. Her troponin is normal. The patient was taken for CT pulmonary angiogram which demonstrated no evidence of aortic dissection or PE. She is noted to have coronary calcifications. The patient remained chest pain-free throughout her stay in the emergency department. Consultation was made with Cardiology and she was evaluated by the cardiology service at 11:00 a.m.. Given the severe nature of her symptoms an early history of heart disease the patient was offered several diagnostic interventions including CT coronary artery angiogram versus cardiac catheterization. The patient elected to pursue cardiac catheterization for further evaluation of her coronary anatomy. Cardiology service anticipates that the patient will be able to be discharged if her cardiac catheterization is normal. They will attempt to schedule that later today. Differential Diagnosis: Differential diagnosis considered includes aortic dissection, pulmonary embolism , pericarditis, myocarditis, coronary vaso spasm, esophageal spasm - Data Points Laboratory Results: Laboratory Results 04/16/18 08:50 04/16/18 08:50 04/16/18 04/16/18 04/16/18 08:53 08:50 08:50 WBC 5.92 10^3/uL 10^3/uL (3.80-9.50) RBC 4.92 10^6/uL 10^6/uL (4.18-5.33) Hgb 14.6 g/dL g/dL (12.6-16.3) Hct 44.6 % % (38.0-47.0) MCV 90.7 fL fL (81.5-99.8) MCH 29.7 pg pg (27.9-34.1) MCHC 32.7 g/dL g/dL (32.4-36.7) RDW 12.5 % % (11.5-15.2) Plt Count 272 10^3/uL 10^3/uL (150-400) MPV 10.9 fL fL (8.7-11.7) Neut % (Auto) 68.7 % % (39.3-74.2) Lymph % (Auto) 24.2 % % (15.0-45.0) Summers % (Auto) 5.4 % % (4.5-13.0) Eos % (Auto) 1.0 % % (0.6-7.6) Baso % (Auto) 0.5 % % (0.3-1.7) Nucleat RBC Rel Count 0.0 % % (0.0-0.2) Absolute Neuts (auto) 4.07 10^3/uL 10^3/uL (1.70-6.50) Absolute Lymphs (auto) 1.43 10^3/uL 10^3/uL (1.00-3.00) Absolute Monos (auto) 0.32 10^3/uL 10^3/uL (0.30-0.80) Absolute Eos (auto) 0.06 10^3/uL 10^3/uL (0.03-0.40) Absolute Basos (auto) 0.03 10^3/uL 10^3/uL (0.02-0.10) Absolute Nucleated RBC 0.00 10^3/uL 10^3/uL (0-0.01) Immature Gran % 0.2 % % (0.0-1.1) Immature Gran # 0.01 10^3/uL 10^3/uL (0.00-0.10) PT INR APTT Sodium 142 mEq/L mEq/L (135-145) Potassium 4.0 mEq/L mEq/L (3.3-5.0) Chloride 107 mEq/L mEq/L (97-110) Carbon Dioxide 24 mEq/l mEq/l (22-31) Anion Gap 11 mEq/L mEq/L (8-16) BUN 14 mg/dL mg/dL (7-23) Creatinine 0.7 mg/dL mg/dL (0.6-1.0) Estimated GFR > 60 Glucose 97 mg/dL mg/dL (70-100) Calcium 10.0 mg/dL mg/dL (8.5-10.4) Magnesium 1.9 mg/dL mg/dL (1.6-2.3) Total Bilirubin 1.0 mg/dL mg/dL (0.1-1.4) AST 19 IU/L IU/L (14-46) ALT 28 IU/L IU/L (9-52) Alkaline Phosphatase 64 IU/L IU/L (38-126) POC Troponin I 0.01 ng/mL ng/mL (0.00-0.08) Total Protein 8.4 g/dL H g/dL (6.3-8.2) Albumin 5.0 g/dL g/dL (3.5-5.0) Triglycerides 123 mg/dL mg/dL (35-135) Cholesterol 229 mg/dL H mg/dL (140-200) Cholesterol Risk Factr 0.6 (0.2-1.0) LDL Cholesterol, Calc 139 mg/dL H mg/dL (70-100) LDL Risk Factor 0.8 (0.2-1.0) VLDL Cholesterol 25 mg/dL mg/dL (8-25) Non-HDL Cholesterol 164 mg/dL H mg/dL (90-129) HDL Cholesterol 65 mg/dL mg/dL (40-95) LDL/HDL Ratio 2.14 RATIO RATIO (1.00-3.22) Cholesterol/HDL Ratio 3.52 RATIO RATIO (1.00-4.44) 04/16/18 08:50 WBC RBC Hgb Hct MCV MCH MCHC RDW Plt Count MPV Neut % (Auto) Lymph % (Auto) Summers % (Auto) Eos % (Auto) Baso % (Auto) Nucleat RBC Rel Count Absolute Neuts (auto) Absolute Lymphs (auto) Absolute Monos (auto) Absolute Eos (auto) Absolute Basos (auto) Absolute Nucleated RBC Immature Gran % Immature Gran # PT 12.7 SEC SEC (12.0-15.0) INR 0.93 (0.83-1.16) APTT 30.5 SEC SEC (23.0-38.0) Sodium Potassium Chloride Carbon Dioxide Anion Gap BUN Creatinine Estimated GFR Glucose Calcium Magnesium Total Bilirubin AST ALT Alkaline Phosphatase POC Troponin I Total Protein Albumin Triglycerides Cholesterol Cholesterol Risk Factr LDL Cholesterol, Calc LDL Risk Factor VLDL Cholesterol Non-HDL Cholesterol HDL Cholesterol LDL/HDL Ratio Cholesterol/HDL Ratio Point of Care Test Results: Chemistry 04/16/18 08:53 POC Troponin I 0.01 ng/mL ng/mL (0.00-0.08) Departure - Departure Disposition: To OP Cath/Surgery Clinical Impression: Chest pain Qualifiers: Chest pain type: precordial pain Qualified Code(s): R07.2 - Precordial pain Condition: Good
--- NOTE | 2018-04-16 09:05 | CPEKG ---
Test Reason : OPEN Blood Pressure : / mmHG Vent. Rate : 099 BPM Atrial Rate : 109 BPM P-R Int : 111 ms QRS Dur : 071 ms QT Int : 317 ms P-R-T Axes : 058 061 056 degrees QTc Int : 407 ms Unknown rhythm, irregular rate Confirmed by Nathaniel Mann ([id number]) on 04/16/2018 9:04:38 AM Referred By: Confirmed By:Nathaniel Mann
[2018-04-16 11:18] VITALS: BP 128/87
[2018-04-16 12:17] LABS: INR 0.93 (0.83-1.16); PLATELET COUNT 272 10^3/uL (150-400); PROTIME(PATIENT) 12.7 SEC (12.0-15.0)
--- NOTE | 2018-04-16 13:16 | GCON ---
CARDIAC CONSULTATION DATE OF CONSULTATION: 04/15/2018 CHIEF COMPLAINT: Chest pain. HISTORY OF PRESENT ILLNESS: The patient is a 43-year-old female who presented to the hospital with 10/10 chest tightness, which radiated to her arms and jaw. She had a similar event yesterday shortly after she woke up. She bent over her couch and developed sudden onset of chest tightness with associated lightheadedness and dyspnea. Her symptoms lasted for 15 seconds and then resolved. She presented to the ER, at which time, a troponin and EKG were normal. She was discharged home and did well throughout the night. This morning at approximately 5:30, she had another event of severe 10/10 chest pressure, which radiated to the back of her arms, back and jaw. It was associated with dyspnea and lightheadedness. This event lasted for 10 minutes and then resolved. She was seen by her primary care physician who referred her to the office. Her risk factors for coronary disease include rheumatoid arthritis and a family history of premature coronary artery disease. Her brother had an HI at the age of 40, and her father had his first HI at the age of 45 and ultimately at 60. The patient does exercise on a treadmill for 20 minutes multiple times a week. She denies any exertional chest discomfort but has noted chest pressure throughout the last few months when under emotional stress. Her cardiac history includes a diagnosis of inappropriate sinus tachycardia diagnosed in August 2017. At that time, she had an echocardiogram, which was within normal limits. She also has a history of PVCs with prior ablation. PAST MEDICAL HISTORY: Rheumatoid arthritis, PVCs, status post ablation. PAST SURGICAL HISTORY: Fusion of L5-S1 in August. FAMILY HISTORY: Brother had an HI at the age of 40. Her father had an HI at the age of 45 and ultimately at 60. SOCIAL HISTORY: She denies any recent tobacco use. She does have a history of tobacco use, but quit 10 years ago. MEDICATIONS: See med list. ALLERGIES: No known drug allergies. REVIEW OF SYSTEMS: Ten-point review of systems is negative, except for what is stated in the H and P. PHYSICAL EXAMINATION: GENERAL: Patient appears in no acute distress. VITALS: Blood pressure 128/87, heart rate 102, oxygen saturation of 100% on room air. Afebrile. EYES: Pupils equal. NECK: No carotid bruits or JVD present. LUNGS: Clear to auscultation. No wheezes, rhonchi, or crackles auscultated. CARDIAC: Regular rate and rhythm, without any murmurs, rubs, or gallops appreciated. ABDOMEN: Soft, nontender, nondistended. Bowel sounds present. EXTREMITIES: Palpable pulses bilaterally, without any evidence of edema. NEUROLOGIC: Nonfocal. PSYCHIATRIC: Mood and affect appropriate. SKIN: No obvious rashes or ecchymoses identified. LABORATORY DATA: Troponin 0.01. DIAGNOSTIC STUDIES: A chest CTA was negative for pulmonary embolus or aortic dissection. There was evidence of coronary artery disease within the LAD. EKG reveals normal sinus rhythm with minimal ST depression in the anterior leads. ASSESSMENT: The patient is a 43-year-old female with a history of rheumatoid arthritis and family history of premature coronary artery disease, who presents with severe chest pain concerning for angina. PLAN: The patient's symptoms of recurrent chest discomfort are concerning for angina. Her initial troponin is negative, but her EKG does show some subtle ST depression in the anterior leads. We discussed options for assessing her coronary circulation with either a nuclear stress test, coronary CTA or angiogram. She is extremely anxious and would prefer to proceed with an angiogram. I think this is an appropriate decision. I think a coronary CTA would be a difficult study given her history of inappropriate sinus tachycardia and rate of 100 during our conversation today. The risks, benefits, and alternatives of an angiogram have been discussed with her, and she would like to proceed. The patient was discussed with Dr. Gabo Martinez. /[id number]/MODL MTDD
--- NOTE | 2018-04-16 14:32 | CPIP ---
DATE OF PROCEDURE: 04/16/2018 INDICATION FOR PROCEDURE: The patient is a pleasant 43-year-old female who presented to the emergenc y room yesterday with episode of substernal chest pressure radiating to her arms bilaterally that las haydee 10 seconds. Her workup was unremarkable and she was discharged home. This morning she woke up a nd had a 10 minute episode of 10/10 substernal chest pain radiating to her neck, jaw, back, as well a s down her arms bilaterally. This pain lasted for 10 minutes, associated with shortness of breath an d nausea and resolved spontaneously. Her initial workup in the ER was unremarkable. In the setting of symptoms concerning for unstable angina and strong family history of coronary artery disease and h istory of smoking, decision was made to pursue diagnostic left heart catheterization. PROCEDURE PERFORMED: 1. Left coronary angiography. 2. Right coronary angiography. 3. Left ventriculogram. 4. Right common femoral artery angiography. 5. Cardiac catheterization. PROCEDURE: After informed consent was obtained, the patient was brought to the cardiac catheterizati on lab where she was prepped and draped in sterile fashion. Using 1% lidocaine the right groin was a nesthetized. Using the modified Seldinger technique with the micropuncture kit a 6-Swiss catheter w as placed into the right common femoral artery without complications. JL4 catheter was used to take images of the left coronary anatomy in multiple projections. The JL4 catheter was exchanged over a g uidewire for a JR4 catheter. JR4 catheter was used to take images of the right coronary anatomy in m ultiple projections. JR4 catheter was exchanged over a guidewire for angled pigtail catheter. Angle d pigtail catheter was used to cross the aortic valve. LVEDP was assessed. Left ventriculogram was performed and aortic valve gradient was assessed on pull-back. Angled pigtail catheter was removed o [place] a guidewire without complications. Right common femoral artery angiography demonstrated placemen t of the sheath above the bifurcation and was suitable for Angio-Seal closure device. FINDINGS: 1. Left main normal size and caliber. Bifurcates into left anterior descending and left circumflex coronary artery. There is no evidence of coronary artery disease in the left main. 2. Left anterior descending is a large vessel, wraps around the LV apex. There is no evidence of co ronary artery disease within the left anterior descending. Diagonal branches and septal perforators are also free of coronary artery disease. 3. Circumflex vessel is a codominant vessel with a moderate size first and second obtuse marginal br anch. There is no evidence of coronary artery disease within the circumflex or the obtuse marginal b ranches. Right coronary artery was a codominant vessel which was free of coronary artery disease. HEMODYNAMICS: LVEDP 15 mmHg, LVEF 60% to 65%. Aortic valve gradient: None. CONCLUSION: 1. Normal coronary arteries. 2. Normal left ventricular function. Normal hemodynamics. PLAN: Patient will be discharged home later this afternoon. Patient will follow up with her primary care physician, Dr. Alicia Malcolm. /[id number]/MODL
--- NOTE | 2018-04-16 15:57 | ECHO ---
[email or web address] [address] [address] Main: [phone] Fax: Transthoracic Echocardiogram Name: AVEL BAIRES MR#: [id number] Study Date: 04/16/2018 Study Time: 02:16 PM Date of : 1975 Age: 43 year(s) Height: 162.6 cm (64 in.) Weight: 48.99 kg (108 lb.) BSA: 1.51 m2 Gender: Female Examination: Echo Indication: Chest Pain, Post Cath Image Quality: Contrast: Requested by: Gabo Martinez BP: 108 mmHg/63 mmHg Heart Rate: Rhythm: Normal sinus rhythm Indication: Chest Pain, Post Cath Procedure Staff Academic Intern: David Long RDCS Reading Physician: Gabo Martinez MD Requesting Provider: Conclusions: Normal size left ventricle. Normal global systolic LV function. EF is 64 %. No regional wall motion abnormality. Normal diastolic LV function. Normal size right ventricle. Normal RV function. The left atrium is normal in size. The right atrium is normal in size. No pericardial effusion. Measurements: Chambers Valvular Assessment AV/MV Valvular Assessment TV/PV Normal Normal Normal Name Value Range Name Value Range Name Value Range Ao Rimma (MM): 2.1 cm (2.2 cm-3.7 AV Vmax: 0.95 m/s (1 m/s-1.7 cm) m/s) IVSd (2D): 0.8 cm (0.6 cm-1.1 AV maxP mmHg ( - ) cm) LVOT Vmax: 0.81 m/s (0.7 m/s-1.1 LVDd (2D): 3.0 cm (3.9 cm-5.3 m/s) cm) MV E Vmax: 0.75 m/s ( - ) LVDs (2D): 2.0 cm (2.1 cm-4 MV A Vmax: 0.36 m/s ( - ) cm) MV E/A: 2.08 ( - ) LVPWd (2D): 0.9 cm ( - ) LVEF (2D): 64 (>=54 %) Continued Measurements: Chambers Valvular Assessment AV/MV Patient: AVEL BAIRES Study Date: 04/16/2018 Page 1 of 2 02:16 PM Name Value Name Value LADs Lon.0 cm MV E' Septal: 0.12 m/s LA Area: 7.8 cm2 MV E/E' Septal: 6.10 MV E/E' Lateral: 4.40 Findings: Left Ventricle: Normal size left ventricle. No LV hypertrophy. Normal global systolic LV function. EF is 64 %. No regional wall motion abnormality. Normal diastolic LV function. Right Ventricle: Normal size right ventricle. Normal RV function. Left Atrium: The left atrium is normal in size. Right Atrium: The right atrium is normal in size. Mitral Valve: The mitral valve is normal in appearance and function. There is no mitral valve regurgitation. Aortic Valve: The aortic valve is normal in appearance and function. The aortic valve is tri-leaflet. Tricuspid Valve: The tricuspid valve is normal in appearance and function. The pulmonary artery pressure is normal. Pulmonic Valve: The pulmonic valve is normal in appearance and function. Aorta: The aorta is normal. Pericardium: No pericardial effusion. (No Signature Object) Patient: AVEL BAIRES Study Date: 04/16/2018 Page 2 of 2 02:16 PM D:_[id number]
--- NOTE | 2018-04-17 21:21 | CPEKG ---
Test Reason : OPEN Blood Pressure : / mmHG Vent. Rate : 070 BPM Atrial Rate : 071 BPM P-R Int : 149 ms QRS Dur : 088 ms QT Int : 401 ms P-R-T Axes : 042 023 129 degrees QTc Int : 433 ms Sinus rhythm Anteroseptal infarct, old Nonspecific T abnormalities, lateral leads Confirmed by Cassie Lux ([id number]) on 04/17/2018 9:20:37 PM Referred By: Confirmed By:Cassie Lux
== END | disposition home or self-care (01) ==
LOC: UNDOADMIN 10:39 → FCATH 10:39
PROVIDERS: ATTEND Internal Medicine Cardiovascular Disease
PROC: B2111ZZ Fluoroscopy of Multiple Coronary Arteries using Low Osmolar Contrast (ICD-10-PCS; principal; 2018-04-16)
PROC: B2151ZZ Fluoroscopy of Left Heart using Low Osmolar Contrast (ICD-10-PCS; principal; 2018-04-16)
PROC: 4A023N7 Measurement of Cardiac Sampling and Pressure, Left Heart, Percutaneous Approach (ICD-10-PCS; principal; 2018-04-16)
DX: R07.9 Chest pain, unspecified (principal); M06.9 Rheumatoid arthritis, unspecified; Z87.891 Personal history of nicotine dependence; Z82.49 Family history of ischemic heart disease and other diseases of the circulatory system; Z98.1 Arthrodesis status
CPT/HCPCS: 84484-PO; C1760; J1644; J2250; J3010; Q9967

== ENCOUNTER → 2018-05-28 | Outpatient (CLI) | payer OTHER | LOC: BMCIMAGING 09:05 | PROVIDERS: ATTEND Internal Medicine Rheumatology | DX: M53.82 Other specified dorsopathies, cervical region (principal) ==